=== PATIENT | female | born 1985 | race Caucasian/White ===

== ENCOUNTER 2016-02-25 13:30 | Emergency (ER) ==
[2016-02-25 13:36] VITALS: BP 154/109; TEMP 98.8; BMI 30.9
[2016-02-25 14:06] LABS: BASOPHILS % (AUTO) 0.3 % (0.0-3.0); EOSINOPHILS # (AUTO) 0.2 K/ul (0.0-0.7); EOSINOPHILS % (AUTO) 2.3 % (0.0-7.0); HEMATOCRIT 41.9 % (37.0-47.0); HEMOGLOBIN 13.4 g/dl (12.0-16.0); IMMATURE GRANULOCYTE % (AUTO) 0.4 % (0.0-5.0); LYMPHOCYTES # (AUTO) 1.8 K/uL (0.60-3.4); LYMPHOCYTES % (AUTO) 23.9 (10.0-50.0); MEAN CORPUSCULAR HEMOGLOBIN 26.8 pg (27.0-31.0); MEAN CORPUSCULAR VOLUME 83.8 fl (81.0-99.0); MONOCYTES # (AUTO) 0.5 K/uL (0.4-2.0); MONOCYTES % (AUTO) 7.2 (0-10); NEUTROPHILS # (AUTO) 4.9 K/ul (2.0-6.9); NEUTROPHILS % (AUTO) 65.9; PLATELET COUNT 244 10^3/uL (140-440); WHITE BLOOD COUNT 7.49 K/ul (4.6-10.2)
[2016-02-25 14:22] LABS: BILIRUBIN,URINE Negative (NEGATIVE); KETONES,URINE Negative (NEGATIVE); LEUKOCYTE ESTERASE ,URINE 1+ (NEGATIVE); NITRITE,URINE Negative (NEGATIVE); PROTEIN,URINE Negative (NEGATIVE); URINE, BLOOD Trace-intact (NEGATIVE)
[2016-02-25 14:23] LABS: ADD URINE MICROSCOPIC YES
[2016-02-25 14:24] LABS: BACTERIA,URINE 1+ (NOT PRESENT)
[2016-02-25 14:29] LABS: ALBUMIN 3.9 g/dL (3.4-5.0); ALBUMIN/GLOBULIN RATIO 1.11; ANION GAP 14.2; BILIRUBIN,TOTAL 0.18 mg/dL (0.00-1.20); BUN/CREATININE RATIO 12.82; CREATININE 0.78 mg/dL (0.60-1.30); POTASSIUM 4.2 mmol/L (3.5-5.10); TOTAL PROTEIN 7.4 g/dL (6.4-8.2)
[2016-02-25 14:30] LABS: SERUM PREGNANCY INTERNAL QC INTERNAL QC VALID
[2016-02-25 14:35] LABS: FLU INTERNAL QC INTERNAL QC VALID; RAPID FLU A NEGATIVE (NEGATIVE); RAPID FLU B NEGATIVE (NEGATIVE)
--- NOTE | 2016-02-25 14:55 | ED.PDOC ---
General ED Provider: Dr. MARCO MOORE Chief Complaint: Nausea/Vomiting Stated Complaint: abdominal pain Time Seen by Physician: 13:39 Mode of Arrival: Walk-In Information Source: Patient Exam Limitations: No limitations Primary Care Provider: CHRISTINE GRACIA Nursing and Triage Documentation Reviewed and Agree: Yes GI Complaint Exam - Abdominal Pain Complaint/Exam Onset: Gradual Duration: 1 day Symptoms Are: Still present Timing: Intermittent Initial Severity: Moderate Current Severity: Mild Location of Pain: Diffuse Character: Reports: Aching, Cramping Aggravating: Reports: None Alleviating: Reports: None Associated Signs and Symptoms: Reports: Nausea, Vomiting, Diarrhea. Denies: Diaphoresis, Fever, Cough, Chest pain, Dizziness, Back pain, Constipation, Blood in stool, Dysuria, Urinary frequency, Decreased urine output, Decreased appetite, Vaginal bleeding, Vaginal discharge, Sore throat, Decreased activity AAA Risk Factors: Reports: None Cardiac Risk Factors: Reports: None Ectopic Risk Factors: Reports: None Ovarian Torsion Risk Factors: Reports: None Surgical Obstruction Risk Factors: Reports: None Related Surgical History: Reports: None Patient Rh Status: Unknown Abdominal Findings: Present: None Differential Diagnoses: Appendicitis, Bowel Obstruction, Constipation, Gastroenteritis, Pancreatitis, Irritable Bowel Syndrome, PUD, UTI Review of Systems - Review Of Systems Constitutional: Reports: No symptoms Eyes: Reports: No symptoms Ears, Nose, Mouth, Throat: Reports: No symptoms Respiratory: Reports: No symptoms Cardiac: Reports: No symptoms GI: Reports: Abdominal pain, Diarrhea, Nausea : Reports: No symptoms Musculoskeletal: Reports: No symptoms Skin: Reports: No symptoms Neurological: Reports: No symptoms Endocrine: Reports: No symptoms Hematologic/Lymphatic: Reports: No symptoms All Other Systems: Reviewed and Negative Past Medical History - Past Medical History Endocrine: Reports: None Cardiovascular: Reports: Hypertension Respiratory: Reports: None Hematological: Reports: None Gastrointestinal: Reports: None Genitourinary: Reports: None Neuro/Psych: Reports: Anxiety Musculoskeletal: Reports: None Cancer: Reports: None Last Menstrual Period: 2016 - Surgical History General Surgical History: Reports: Unknown - Family History Family History: Reports: Unknown - Social History Smoking Status: Current some day smoker Hx Substance Use: No Alcohol Screening: None - Immunizations Tetanus Shot up to Date: Yes Physical Exam - Physical Exam Appearance: Well-appearing, No pain distress, Well-nourished Eyes: KATHLEEN, EOMI, Conjunctiva clear ENT: Ears normal, Nose normal, Oropharynx normal Respiratory: Airway patent, Breath sounds clear, Breath sounds equal, Respirations nonlabored Cardiovascular: RRR, Pulses normal, No rub, No murmur GI/: Soft, Nontender, No masses, Bowel sounds normal, No Organomegaly Musculoskeletal: Normal strength, ROM intact, No edema, No calf tenderness Skin: Warm, Dry, Normal color Neurological: Sensation intact, Motor intact, Reflexes intact, Cranial nerves intact, Alert, Oriented Psychiatric: Affect appropriate, Mood appropriate Critical Care Note - Critical Care Note Total Time (mins): 0 Course - Course Hematology/Chemistry: 02/25/16 14:00 02/25/16 14:00 Orders, Labs, Meds: Lab Review 02/25/16 02/25/16 14:00 14:10 WBC 7.49 RBC 5.00 Hgb 13.4 Hct 41.9 MCV 83.8 MCH 26.8 L MCHC 32.0 RDW Coeff of Damián 14.3 Plt Count 244 Immature Gran % (Auto) 0.4 Neut % (Auto) 65.9 Lymph % (Auto) 23.9 [place] % (Auto) 7.2 Eos % (Auto) 2.3 Baso % (Auto) 0.3 Immature Gran # (Auto) 0.0 Neut # 4.9 Lymph # 1.8 [place] # 0.5 Eos # 0.2 Baso # 0.0 Sodium 140 Potassium 4.2 Chloride 106 Carbon Dioxide 24 Anion Gap 14.2 BUN 10 Creatinine 0.78 Estimated GFR (MDRD) 87.00 BUN/Creatinine Ratio 12.82 Glucose 96 Calcium 9.0 Total Bilirubin 0.18 AST 23 ALT 35 Alkaline Phosphatase 85 Total Protein 7.4 Albumin 3.9 Globulin 3.5 Albumin/Globulin Ratio 1.11 Amylase 53 Lipase 22 Serum , Qual Negative Urine Color Yellow Urine Clarity Clear Urine pH 6.0 Ur Specific [place] 1.025 Urine Protein Negative Urine Glucose (UA) Negative Urine Ketones Negative Urine Blood Trace-intact Urine Nitrite Negative Urine Bilirubin Negative Urine Urobilinogen 0.2 Ur Leukocyte Esterase 1+ Urine Microscopic RBC 2-5 Urine Microscopic WBC 5-10 Ur Squamous Epith Cells 5-10 Urine Bacteria 1+ Influenza A (Rapid) Negative Influenza B (Rapid) Negative Orders Category Date Time Status AMYLASE Stat LAB 02/25/16 14:00 Completed CBC W/ AUTO DIFF Stat LAB 02/25/16 14:00 Completed COMPREHENSIVE METABOLIC PANEL Stat LAB 02/25/16 14:00 Completed LIPASE Stat LAB 02/25/16 14:00 Completed MOLECULAR GROUP A STREP Stat LAB 02/25/16 14:10 Results RAPID FLU A/B Stat LAB 02/25/16 14:10 Completed SERUM Stat LAB 02/25/16 14:00 Completed STREP SCREEN Stat LAB 02/25/16 14:10 Results URINALYSIS C & S IF INDICATED Stat LAB 02/25/16 14:10 Completed URINE CULTURE Stat LAB 02/25/16 14:[address] ABDOMEN/PELVIS WO CONTRAST Stat RADS 02/25/16 13:51 Ordered Vital Signs: Temp Pulse Resp BP Pulse Ox 02/25/16 13:31 98.8 F 101 H 16 154/109 H 98 Departure - Departure Time of Disposition: 15:45 Disposition: HOME SELF-CARE Discharge Problem: Abdominal pain Qualifiers: Abdominal location: unspecified location Qualifier Code: (R10.9) Unspecified abdominal pain Instructions: Abdominal Pain (ED) Condition: Good Pt referred to PMD for follow-up: No Allergies/Adverse Reactions: Allergies cefaclor [From Ceclor] Adverse Reaction (Verified 02/25/16 13:40) Uncertain reaction, pt was very young, believes it may have resulted in swelling. cephalexin monohydrate [From Keflex] Adverse Reaction (Verified 02/25/16 13:40) Hives codeine Adverse Reaction (Verified 02/25/16 13:40) Itching sulfamethoxazole [From Bactrim] Adverse Reaction (Verified 02/25/16 13:40) Itching trimethoprim [From Bactrim] Adverse Reaction (Verified 02/25/16 13:40) Itching Home Medications: Ambulatory Orders 1 [No Reported Medications] 01/18/14 Disposition Discussed With: Patient
--- NOTE | 2016-02-25 15:25 | CT ---
EXAM: CT Abdomen without contrast. CT Pelvis without contrast. HISTORY: Abdominal pain. Nausea and vomiting. COMPARISON: 01/18/2014. TECHNIQUE: Multiple axial images of the abdomen and pelvis were obtained without intravenous contra st. Images were reformatted in the coronal plane. FINDINGS: Please note that evaluation of the abdominal and pelvic structures is limited due to lack of intravenous contrast. The lung bases are clear. No acute osseous abnormality identified. Gallbladder is absent. The liver, pancreas, spleen, adrenal glands, and kidneys demonstrate normal contour. No calcified renal stones or hydronephrosis identified. Fat-containing umbilical hernia noted which appears stable. The bowel is normal in course and calib er without evidence for obstruction or inflammatory process. The appendix is normal. Uterus demons trates normal contour. There has been previous placement of fallopian tubal occlusion devices. Uri nary bladder is unremarkable. No free fluid or free air detected. IMPRESSION: 1. No acute abnormality within the abdomen or pelvis. 2. Stable fat-containing umbilical hernia.
== END 2016-02-25 15:40 | disposition home or self-care (01) ==
LOC: ED 13:30
DX: A49.1 Streptococcal infection, unspecified site (principal); R10.84 Generalized abdominal pain; R11.2 Nausea with vomiting, unspecified; R19.7 Diarrhea, unspecified; I10 Essential (primary) hypertension; F17.210 Nicotine dependence, cigarettes, uncomplicated
CPT/HCPCS: 36415; 80053; 81001; 82150; 83690; 84703; 85025; 87086; 87186; 87651; 87804; 87880; 99283

== ENCOUNTER 2016-11-10 10:00 | Outpatient (CLI) | END 2016-11-10 10:01 | disposition home or self-care (01) | LOC: CAR 10:00 | PROVIDERS: ATTEND Physician Assistant | DX: I10 Essential (primary) hypertension (principal) | CPT/HCPCS: 93005; 93010 ==

== ENCOUNTER 2017-02-13 15:28 | Outpatient (CLI) ==
--- NOTE | 2017-02-13 15:55 | DI ---
Exam: Two x-rays of the chest. Comparison: 01/18/2014. Reason for exam: Cough. FINDINGS: No pneumothorax, pleural effusion, or focal consolidation. The cardiac silhouette is not enlarged. The imaged osseous structures appear grossly unremarkable without acute fracture. Impression: No acute cardiopulmonary process.
== END 2017-02-13 15:29 | disposition home or self-care (01) ==
LOC: RAD 15:28
PROVIDERS: ATTEND Physician Assistant
DX: R05 Cough (principal)

== ENCOUNTER 2017-02-27 08:44 | Outpatient (CLI) ==
--- NOTE | 2017-03-02 07:43 | HOLTER ---
PATIENT INFORMATION AND COMMENTS Attending Physician: TABATHA MENDOZA PA-C Indications: PALPITATIONS __ Patient Medications: NO LIST AVAILABLE __ Pre-procedure Summary: Protocol: Standard Heart Rate Started: 02/27/17913 Minimum: 57 BPM Weight: N/A Ended: 02/28/17913 Maximum: 142 BPM Height: 64" Duration: 24 HOURS Average: 93 BPM _ INTERPRETATIONS/OBSERVATIONS: 1. BASIC RHYTHM: SINUS, RATE 60 BPM TO 130 BPM, AVERAGE 90 BPM 2. INFREQUENT TO RARE PVC'S AND PAC'S 3. NO ST-T WAVE CHANGES FROM BASELINE 4. NO CORRELATION WITH ACTIVITY LOG MTDD
== END 2017-02-27 08:45 | disposition home or self-care (01) ==
LOC: CAR 08:44
PROVIDERS: ATTEND Physician Assistant
DX: R00.2 Palpitations (principal)

== ENCOUNTER 2017-03-11 11:27 | Outpatient (CLI) ==
--- NOTE | 2017-03-11 11:53 | DI ---
EXAM: Scoliosis series HISTORY: Scoliosis COMPARISON: None TECHNIQUE: AP scoliosis series was performed. FINDINGS: No vertebral body malformations identified. There is a minimal sinusoidal curvature of th e thoracolumbar spine that is convex to the right in the lower thoracic spine and convex to the left in the lumbar spine. Rightward thoracic spinal curvature is centered at T8 and measures 7 degrees us ing Daley technique. Leftward lumbar spinal curvature is centered at L2 and measures 6 degrees using Daley technique. IMPRESSION: Minimal sinusoidal curvature of the spine as described.
== END 2017-03-11 11:28 | disposition home or self-care (01) ==
LOC: RAD 11:27
PROVIDERS: ATTEND Physician Assistant
DX: M41.9 Scoliosis, unspecified (principal)
CPT/HCPCS: 72082

== ENCOUNTER 2017-04-02 14:00 | Outpatient (RCR) ==
--- NOTE | 2017-03-13 10:30 | RS.OPPTEV2 ---
Date of Note: 03/12/17 Visit #: 1 Date of Evaluation: 03/12/17 Payer Source: Medicaid Surgery Performed?: No Treatment Diagnosis: low back pain History of Condition/Mechanism of Injury:: pt report she has scoliosis and has had back pain "on and off" for several years but has recently become more severe limiting each activity. 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 She states that the pain has gotten more severe in last few weeks. Treatment Side (optional): N/A *Precautions: n/a Medical History Medical History: Hypertension Medical History Comments:: scoliosis Surgical History: Cholecystectomy Smoking Status: Current every day smoker Diagnostic Testing/Imaging:: Xray 03/11/17 showed "minimal sinusoidal curvature of spine". (R thoracic curvature, L lumbar curvature) Hx Home Medications: lexapro, lisinopril Patient's Goals: decrease pain Pain Assessment - Pain Description Pain Location: R lumbar area as well as mid thoracic area. Pain Description: Burning, Sharp, Aching Current Pain Intensity: 3/10 Functional Outcome Measure Oswestry LBP: 11 (22%) - G Codes & Severity Modifier G Codes & Modifier: n/a Source of G Code score: n/a Observation - Observation Inspection: leg length discrepancy L LE is longer than R LE Posture: Forward Head, Rounded Shoulders, Scoliosis Gait - Gait Pattern General Gait Pattern Observation: No Deviations/Normal General Range of Motion: WFL's BUE and LE Muscle Strength: BUE grossly 5/5. BLE grossly 5/5 - ROM Lumbar Flexion: Hand reach to Mid-Shins Sidebending to Left: Reach to Mid-thigh Sidebending to Right: Reach to Mid-thigh Lumbar Spine ROM Limitations: Soft Tissue Tightness, Muscle Weakness, Pain - Strength Comments: pt reports pain in all planes of ROM, more pain with flex and side bending. Palpation Palpation Findings: Tenderness, Trigger Point, Muscle Guarding Comments:: R lumbar with trigger points. Tenderness noted in mid thoracic spine. Sensation - Sensation Right Upper Extremity: Intact/Normal Left Upper Extremity: Intact/Normal Right Lower Extremity: Intact/Normal Left Lower Extremity: Intact/Normal Balance - Sitting Balance Static Sitting Balance: Normal Dynamic Sitting Balance: Normal - Standing Balance Static Standing Balance: Normal Dynamic Standing Balance: Normal - Treatment Modality: Electrical Stim Unattended Parameters/Method Applied: IFC to lumbar x 20 mins at 12ma Treatment Area: lumbar Patient Position: Left Sidelying - Heat/Cryotherapy Treatment: Hot Pack Interventions - Exercise/Activities/Manual Therapy Exercises/Activities: pt performed pelvic tilts, ball squeeze and resisted hip flex as well as scapular retraction Manual Therapy: n/a HOME EXERCISE PROGRAM: pt given written HEP including pelvic tilt, ball sqeeze, resisted hip flex - Charges Timed Code Treatment Minutes: 42 Total Treatment Time: 60 Procedures billed for this date of service:: eval low, estim unattended, hot pack EVALUATION COMPLEXITY LEVEL EVALUATION COMPLEXITY LEVEL: HISTORY: Low, EXAM OF BODY SYSTEMS: Low, CLINICAL PRESENTATION: Medium, CLINICAL DECISION MAKING: Medium Assessment Assessment: pt presents with mid thoracic and low back pain. pt with tightness noted in B hamstrings as well as paraspinal muscles. pt with h/o scoiliosis. Patient Education: Home Exercise Program, Education of Plan of Care Rehab Potential: Good Short Term Goals Goal #1: pt rate pain <4 with activity Goal to be met by: 03/26/17 Goal #2: pt with decreased muscle tightness B hamstrings Goal to be met by: 03/26/17 Residential Goals Goal #1: pt report pain <3/10 with activity Goal to be met by: 04/09/17 Goal #2: pt rate oswestry low back pain scale <10 Goal to be met by: 04/09/17 Goal #3: pt report that she is able to perform all household duties with less pain Goal to be met by: 04/09/17 Goal #4: pt independent with HEP Goal to be met by: 04/09/17 Plan - Treatment to be Provided Procedures: Therapeutic Exercises, Therapeutic Activity, Manual Therapy, Massage , Patient Education Modalities: Electrical Stimulation, Ultrasound/Phonophoresis, Class IV Laser, Cryotherapy, Hot Packs - Treatment Plan Frequency: 2 X week Duration: 4 weeks ORDER # VISITS AND/OR THROUGH DATE: 04/09/17 - Treatment Code (1) Low back pain Code(s): M54.5 - LOW BACK PAIN Qualifiers: Chronicity: acute Back pain laterality: bilateral Sciatica presence: without sciatica Qualified Code(s): M54.5 - Low back pain
--- NOTE | 2017-03-17 16:35 | RS.OPPTDN ---
Subjective Date of Note: 03/17/17 Visit #: 2 Date of Evaluation: 03/12/17 Payer Source: Medicaid Treatment Diagnosis: low back pain Current Subjective/complaints:: Patient says treatment at eval relieved her pain. She says she still has mild to moderate pain level mostly at the low back to and to the R. *Precautions: n/a - Treatment Modality: Electrical Stim Unattended Parameters/Method Applied: IFC @ 10-12 pk volts x 20 mins to the lower thoracic and lumbar region Patient Position: Left Sidelying - Heat/Cryotherapy Treatment: Hot Pack Interventions - Exercise/Activities/Manual Therapy Exercises/Activities: Patient receives passive stretches of SKTC, Piriformis, lower trunk rotation, HS x 3 bilaterally. Pelvic stability of: ball squeezes, bridging, isometric hip abd/flexion x 10. Sitting: scap retraction with green tband x 10. Patient education on diagnois. Total minutes of Exercise: 20 Manual Therapy: n/a HOME EXERCISE PROGRAM: pt given written HEP including pelvic tilt, ball sqeeze, resisted hip flex - Charges Timed Code Treatment Minutes: 20 Total Treatment Time: 40 Procedures billed for this date of service:: hp, estim (un), ex Assessment: Patient admits to improved pain to the mid to low back with treatment today. She should benefit from further modalities to ease back pain and assist with muscle guarding and progress with trunk/postural strengthening. Patient Education: Education of diagnosis, Home Exercise Program Short Term Goals Goal #1: pt rate pain <4 with activity Goal to be met by: 03/26/17 Goal #2: pt with decreased muscle tightness B hamstrings Goal to be met by: 03/26/17 Residential Goals Goal #1: pt report pain <3/10 with activity Goal to be met by: 04/09/17 Goal #2: pt rate oswestry low back pain scale <10 Goal to be met by: 04/09/17 Goal #3: pt report that she is able to perform all household duties with less pain Goal to be met by: 04/09/17 Goal #4: pt independent with HEP Goal to be met by: 04/09/17 Plan PLAN OF CARE EXPIRES ON:: 04/09/17 ORDER # VISITS AND/OR THROUGH DATE: 04/09/17 PLAN: Patient to continue 2x4 more weeks
--- NOTE | 2017-03-23 14:10 | RS.OPPTDN ---
Subjective Date of Note: 03/23/17 Visit #: 3 Date of Evaluation: 03/12/17 Payer Source: Medicaid Treatment Diagnosis: low back pain Current Subjective/complaints:: Patient says her back is irritated today due to housework all weekend. She says she swept and mopped as well as had several of her kid's friends over. *Precautions: n/a Pain Assessment - Pain Description Pain Location: Elevated mid to low back pain today. - Treatment Modality: Electrical Stim Unattended Parameters/Method Applied: IFC @ 18 pk volts x 20 mins at mid thoracic to lower lumbar paraspinals Patient Position: Left Sidelying - Heat/Cryotherapy Treatment: Hot Pack Interventions - Exercise/Activities/Manual Therapy Exercises/Activities: Patient receives passive stretches of SKTC, Piriformis, lower trunk rotation, HS x 3 bilaterally. Pelvic stability of: ball squeezes, bridging, isometric hip abd/flexion x 10. Sitting: scap retraction with green tband x 10. Gave green tband for home hooklying hip abd. Total minutes of Exercise: 17 Manual Therapy: n/a HOME EXERCISE PROGRAM: pt given written HEP including pelvic tilt, ball sqeeze, resisted hip flex - Charges Timed Code Treatment Minutes: 17 Total Treatment Time: 37 Procedures billed for this date of service:: hp estim (un), ex Assessment: Patient has responded to treatment having less back pain, but does increase with more difficult housework. Mild soreness with bilateral HS stretching. She has initiated HEP and appears to be eager to improve and progress therex. Patient Education: Education of diagnosis, Home Exercise Program Patient demonstrates compliance with HEP?: Yes Short Term Goals Goal #1: pt rate pain <4 with activity Goal to be met by: 03/26/17 Goal #2: pt with decreased muscle tightness B hamstrings Goal to be met by: 03/26/17 Long-Term Goals Goal #1: pt report pain <3/10 with activity Goal to be met by: 04/09/17 Goal #2: pt rate oswestry low back pain scale <10 Goal to be met by: 04/09/17 Goal #3: pt report that she is able to perform all household duties with less pain Goal to be met by: 04/09/17 Goal #4: pt independent with HEP Goal to be met by: 04/09/17 Plan PLAN OF CARE EXPIRES ON:: 04/09/17 ORDER # VISITS AND/OR THROUGH DATE: 04/09/17 PLAN: Patient to continue with modalties and therex to improve back pain, guarding, and provide trunk and postural strength.
--- NOTE | 2017-03-26 14:14 | RS.OPPTDN ---
Subjective Date of Note: 03/26/17 Visit #: 4 Date of Evaluation: 03/12/17 Payer Source: Medicaid Treatment Diagnosis: low back pain Current Subjective/complaints:: Patient c/o L SI joint pain today. She says it is worse than her mid or upper back pain. She rates 6-7/10 and mostly with WBing/amb. She says she nearly fell because of it. She regretfully admits that she has been unable to perform HEP consistently. *Precautions: n/a - Treatment Modality: Electrical Stim Unattended Parameters/Method Applied: 2 large pads at L SI joint @ 180 pk volts and 2 at the R lumbar paraspinals x 20 mins Patient Position: Right Sidelying - Heat/Cryotherapy Treatment: Hot Pack Interventions - Exercise/Activities/Manual Therapy Exercises/Activities: Patient receives passive stretches of SKTC, Piriformis, lower trunk rotation, HS x 3 bilaterally. Pelvic stability of: ball squeezes, bridging, isometric hip abd/flexion x 10. Added 2# wand and LE alternate lift x 10. Sitting: scap retraction with green tband x 10. Reviewed HeP and postural mechanics. Total minutes of Exercise: 20 Manual Therapy: n/a HOME EXERCISE PROGRAM: pt given written HEP including pelvic tilt, ball sqeeze, resisted hip flex - Charges Timed Code Treatment Minutes: 20 Total Treatment Time: 40 Procedures billed for this date of service:: hp, estim (un), ex Assessment: Patient experiencing changing pain symptoms and locations. C/c is L SI joint today. This pain has been so bad at times that it nearly caused a fall. She recalls this being mostly with amb. Through treatment today, pain was relieved to only mild and general muscle fatigue to LE's. HS length improving bilaterally. Gait appears to show increased WB on the L LE compared to when she arrived. Patient Education: Body/Joint mechanics, Home Exercise Program Patient demonstrates compliance with HEP?: Yes Short Term Goals Goal #1: pt rate pain <4 with activity Goal to be met by: 03/26/17 Goal #2: pt with decreased muscle tightness B hamstrings Goal to be met by: 03/26/17 Progress towards Goal:: Progressing Demand Planning Manager Goals Goal #1: pt report pain <3/10 with activity Goal to be met by: 04/09/17 Goal #2: pt rate oswestry low back pain scale <10 Goal to be met by: 04/09/17 Goal #3: pt report that she is able to perform all household duties with less pain Goal to be met by: 04/09/17 Goal #4: pt independent with HEP Goal to be met by: 04/09/17 Plan PLAN OF CARE EXPIRES ON:: 04/11/17 ORDER # VISITS AND/OR THROUGH DATE: 04/09/17 PLAN: Patient was encouraged to attempt HeP over the weekend and be aware of posture mechanics.
--- NOTE | 2017-03-30 15:55 | RS.OPPTDN ---
Subjective Date of Note: 03/30/17 Visit #: 5 Date of Evaluation: 03/12/17 Payer Source: Medicaid Treatment Diagnosis: low back pain Current Subjective/complaints:: Patient says her pain is better. She reports pain is now a smaller area to the R lumbar paraspinals. *Precautions: n/a Pain Assessment - Pain Description Pain Location: less pain today and improved size of location of pain. - Treatment Modality: Electrical Stim Unattended Parameters/Method Applied: hivolt 2 pads to the L lumbar paraspinals and R lower lumbar paraspinals and SI joint @ 145-155 pk volts x 20 mins Patient Position: Left Sidelying - Heat/Cryotherapy Treatment: Hot Pack Interventions - Exercise/Activities/Manual Therapy Exercises/Activities: Patient receives passive stretches of SKTC, Piriformis, lower trunk rotation, HS x 3 bilaterally. Pelvic stability of: ball squeezes, bridging, isometric hip abd/flexion x 10. Added 2# wand and LE alternate lift x 10 with 2# on each ankle. 2#wand bilateral shoulder flexion. Sitting: scap retraction with green tband x 10. Reviewed HeP and postural mechanics. Total minutes of Exercise: 17 Manual Therapy: n/a HOME EXERCISE PROGRAM: pt given written HEP including pelvic tilt, ball sqeeze, resisted hip flex - Charges Timed Code Treatment Minutes: 17 Total Treatment Time: 37 Procedures billed for this date of service:: hp, estim (un), ex Assessment: Patient demo increased bilateral hamstring length and reduced pain level. She is able to perform all HeP/therex in with some general muscle fatigue and mild soreness that evening. Patient Education: Body/Joint mechanics, Home Exercise Program Patient demonstrates compliance with HEP?: Yes Short Term Goals Goal #1: pt rate pain <4 with activity Goal to be met by: 03/26/17 Progress towards Goal:: Met Goal #2: pt with decreased muscle tightness B hamstrings Goal to be met by: 03/26/17 Progress towards Goal:: Met Long-Term Goals Goal #1: pt report pain <3/10 with activity Goal to be met by: 04/09/17 Progress towards goal: Progressing Goal #2: pt rate oswestry low back pain scale <10 Goal to be met by: 04/09/17 Goal #3: pt report that she is able to perform all household duties with less pain Goal to be met by: 04/09/17 Goal #4: pt independent with HEP Goal to be met by: 04/09/17 Plan PLAN OF CARE EXPIRES ON:: 04/09/17 ORDER # VISITS AND/OR THROUGH DATE: 04/09/17 PLAN: Patient to continue x 1 more visit for progression of trunk stability.
== END 2017-04-08 ==
PROVIDERS: ATTEND Physician Assistant
DX: M54.5 Low back pain (principal)